=== PATIENT | female | born 1955 | race Caucasian/White ===

== ENCOUNTER 2020-04-17 20:17 | Emergency (ER) | payer OTHER ==
[2020-04-17] MEDS ORDERED: ACETAMINOPHEN 500 MG TAB ONE (20:47)
--- NOTE | 2020-04-17 21:07 | RAD REPORT ---
EXAM DESCRIPTION: RAD - Shoulder Left 2 View - 04/17/2020 8:53 pm CLINICAL HISTORY: Left shoulder pain status post fall FINDINGS: No fracture or dislocation is seen. Marked osteoarthritis left AC joint
--- NOTE | 2020-04-17 21:08 | RAD REPORT ---
EXAM DESCRIPTION: RAD - Knee Left 3 View - 04/17/2020 8:53 pm CLINICAL HISTORY: Left knee pain status post injury FINDINGS: No fracture or dislocation is seen.
--- NOTE | 2020-04-17 21:12 | RAD REPORT ---
EXAM DESCRIPTION: CT - Head C Spine Cap Wo Con - 04/17/2020 8:53 pm TECHNIQUE: Computed axial tomography of the head and cervical spine was obtained. Coronal and sagitt al reconstruction was performed Computed axial tomography of the chest, abdomen and pelvis was obtained. Contrast was not requested. All CT scans are performed using dose optimization technique as appropriate and may include automated exposure control or mA/KV adjustment according to patient size. CLINICAL HISTORY: Head and neck injury with chest and abdominal pain status post fall COMPARISON: None FINDINGS: Scalp swelling. No intracranial bleed is seen. The ventricles are normal in caliber. An extra-axial fluid collection is not noted. . Fluid within the sinuses/mastoids is not seen. A cervical fracture is not seen. No dislocation is noted. The evaluation of mediastinum, jose m, vessels, solid organs and bowel are limited secondary to the lac k of contrast administration. A mediastinal hematoma is not noted. A pleural effusion is not seen. A lung contusion is not present. The liver,spleen, pancreas, adrenals,kidneys and bladder do not demonstrate a traumatic injury. Pessary within the pelvis IMPRESSION: 1. No acute intracranial abnormality is seen. 2. A cervical fracture is not visualized. If the patient continues have symptoms to suggest intracran ial/spinal cord pathology MRI be recommended 3. No traumatic abnormality involving the chest/abdomen/pelvis.
--- NOTE | 2020-04-17 22:15 | ER ---
Nurse's Notes [facility] Name: Lorrie Coburn Age: 64 yrs Sex: Female : 1955 Arrival Date: 04/17/2020 Time: 20:17 Bed 17 Private MD: Diagnosis: Head and neck injuries. Contusions left shoulder and left knee Presentation: 04/17 20:21 Chief complaint: Patient states: I was climbing a ladder in the garage when I fell off jb4 and landed on the concrete floor. The fall was about 10 feet. I did not loose consciousness and I am not on any blood thinners. 20:21 Acuity: CHELSEA 2 jb4 20:21 Care prior to arrival: None. Mechanism of Injury: Fall from ladder approximately 10 jb4 feet. Trauma event details: Injury occurred in the [facility]. 20:21 Method Of Arrival: Wheelchair jb4 20:21 Coronavirus screen: Client denies travel out of the [place] in the last 14 days. At this jb4 time, the client does not indicate any symptoms associated with coronavirus-19. 20:21 Ebola Screen: No symptoms or risks identified at this time. Initial Sepsis Screen: Does jb4 the patient meet any 2 criteria? No. Patient's initial sepsis screen is negative. Does the patient have a suspected source of infection? No. Patient's initial sepsis screen is negative. Risk Assessment: Do you want to hurt yourself or someone else? Patient reports no desire to harm self or others. Onset of symptoms was April 17, 2020 at 19:44. Transition of care: patient was not received from another setting of care. Trauma Activation: Alert Physician: ED Physician; Name: Scott; Notified At: 20:30; Arrived At: 20:30 Physician: General Surgeon; Name: ; Notified At: 20:30; Arrived At: Physician: Radiology; Name: Daija; Notified At: 20:30; Arrived At: 20:30 Physician: Respiratory; Name: ; Notified At: 20:30; Arrived At: Physician: Lab; Name: ; Notified At: 20:30; Arrived At: Historical: - Allergies: 20:21 No Known Allergies; jb4 - Home Meds: 20:21 Synthroid Oral [Active]; jb4 - PMHx: 20:21 GERD; Hypothyroidism; jb4 - PSHx: 20:21 Hysterectomy; Cholecystectomy; Tonsillectomy; jb4 - Immunization history:: Adult Immunizations up to date. - Immunization history: Last tetanus immunization: - up to date. - Social history:: Smoking status: Patient denies any tobacco usage or history of. Patient/guardian denies using alcohol, street drugs. Screenin:21 Abuse screen: Denies threats or abuse. Tuberculosis screening: No symptoms or risk jb4 factors identified. 20:30 Nutritional screening: No deficits noted. Fall Risk Fall in past 12 months (25 points). rr5 Total Jimenez Fall Scale indicates Low Risk Score (25-44 pts). Fall prevention measures have been instituted. Side Rails Up X 2 Frequent Obs/Assesments occuring Family Present and informed to notify staff if they need to leave bedside As available Patient and Family Educated on Fall Prevention Program and strategies. Primary Survey: 20:21 NO uncontrolled hemorrhage observed. A: The patient is alert. Airway: patent. jb4 Breathing/Chest: Respiratory pattern: regular, Respiratory effort: spontaneous, unlabored, Chest inspection: symmetrical rise and fall of the chest. Circulation: Skin color: pink, Skin temperature: warm, dry. Disability Alert. Exposure/Environment: All clothing and personal items were removed. Forensic evidence collection is not deemed to be indicated at this time. Items placed in patient belonging bag. 21:20 Reassessment Airway Airway Patent Breathing/Chest Respiratory pattern Regular rr5 Respiratory effort Spontaneous Unlabored Breath sounds Clear Chest inspection Symmetrical Circulation Pulses Palpable Disability Alert. Secondary Survey: 20:21 HEENT: Head Other Hematoma to the back of the head and left forehead. Face No jb4 injury/deformity Eyes: No injury or deformity noted. Ears: clear bilaterally. Nose: clear to bilateral nares. Throat: No injury or deformity noted. is clear with gag reflex present. Gastrointestinal: No deficits noted. : No deficits noted. Musculoskeletal: Circulation, motion, and sensation intact. Range of motion: Swelling present in left knee. Injury Description: Abrasion sustained to right hand, left hand, right tricep, right elbow, left tricep, left elbow and left knee hematoma to left side of forehead, left knee and back of head. Assessment: 20:20 General: Appears in no apparent distress. uncomfortable, Behavior is calm, cooperative, rr5 appropriate for age. Pain: Complains of pain in right leg and left side of forehead and top of head and back of head and head and left arm and right arm and left hand and right hand and right elbow and right tricep and left elbow and left tricep and left leg and left knee Pain currently is 10 out of 10 on a pain scale. Quality of pain is described as aching, Pain began suddenly, Is intermittent. 20:20 Neuro: Level of Consciousness is awake, alert, obeys commands, Oriented to person, rr5 place, time, situation, Appropriate for age. Cardiovascular: Capillary refill < 3 seconds Patient's skin is warm and dry. Respiratory: Airway is patent Respiratory effort is even, unlabored, Respiratory pattern is regular, symmetrical. GI: No signs and/or symptoms were reported involving the gastrointestinal system. : No signs and/or symptoms were reported regarding the genitourinary system. EENT: No signs and/or symptoms were reported regarding the EENT system. Derm: Skin temperature is warm Wound noted face, scalp, back, right arm, left arm, right leg and left leg Wound is abrasion. Musculoskeletal: Circulation, motion, and sensation intact. Capillary refill < 3 seconds, Reports pain in face, scalp, back, chest, right arm, left arm, right leg and left leg. 21:10 Reassessment: Patient appears in no apparent distress at this time. Patient is alert, rr5 oriented x 3, equal unlabored respirations, skin warm/dry/pink. back from CT scan. 22:35 Reassessment: Patient appears in no apparent distress at this time. Patient is alert, rr5 oriented x 3, equal unlabored respirations, skin warm/dry/pink. discharge instruction given and explained without complaints made. Vital Signs: 20:21 BP 145 / 69; Pulse 95; Resp 20 S; Temp 98.4(O); Pulse Ox 99% on R/A; Weight 81.65 kg jb4 (R); Height 5 ft. 7 in. (170.18 cm) (R); Pain 10/10; 21:30 BP 138 / 85; Pulse 85; Resp 16; Pulse Ox 99% ; rr5 22:30 BP 127 / 85; Pulse 80; Resp 17; Pulse Ox 100% ; rr5 20:21 Body Mass Index 28.19 (81.65 kg, 170.18 cm) jb4 [place] Coma Score: 20:21 Eye Response: spontaneous(4). Verbal Response: oriented(5). Motor Response: obeys jb4 commands(6). Total: 15. 22:30 Eye Response: spontaneous(4). Verbal Response: oriented(5). Motor Response: obeys rr5 commands(6). Total: 15. Trauma Score (Adult): 20:21 Eye Response: spontaneous(1); Verbal Response: oriented(1); Motor Response: obeys jb4 commands(2); Systolic BP: > 89 mm Hg(4); Respiratory Rate: 10 to 29 per min(4); [place] Score: 15; Trauma Score: 12 22:30 Eye Response: spontaneous(1); Verbal Response: oriented(1); Motor Response: obeys rr5 commands(2); Systolic BP: > 89 mm Hg(4); Respiratory Rate: 10 to 29 per min(4); [place] Score: 15; Trauma Score: 12 ED Course: 20:17 Patient arrived in ED. bp1 20:21 Mahad Duron, RN is Primary Nurse. rr5 20:21 Patient has correct armband on for positive identification. Bed in low position. Call jb4 light in reach. Side rails up X 1. 20:21 Arm band placed on right wrist. jb4 20:21 Patient maintains SpO2 saturation greater than 95% on room air. Thermoregulation: warm jb4 blanket given to patient. 20:33 Enoc Chavez MD is Attending Physician. pkl 20:33 Triage completed. jb4 20:53 Shoulder Left (2 View) XRAY In Process Unspecified. EDMS 20:53 Knee Left 3 View XRAY In Process Unspecified. EDMS 20:54 CT Traumagram (Head C Spine CAP wo con) In Process Unspecified. EDMS 22:20 Bobby wrap to left knee Clavicle/Shoulder strap applied on left clavicle/shoulder. rr5 22:20 No provider procedures requiring assistance completed. Patient did not have IV access rr5 during this emergency room visit. Administered Medications: 20:38 Drug: Tylenol 1000 mg Route: PO; rr5 21:40 Follow up: Response: No adverse reaction rr5 22:10 Drug: Motrin 400 mg Route: PO; rr5 22:30 Follow up: Response: No adverse reaction rr5 Intake: 21:00 PO: 200ml (Water); Total: 200ml. rr5 Outcome: 22:14 Discharge ordered by . pkl 22:35 Discharged to home via wheelchair, with family. rr5 22:35 Condition: stable 22:35 Discharge instructions given to patient, family, Instructed on discharge instructions, rr5 follow up and referral plans. medication usage, Demonstrated understanding of instructions, follow-up care, medications, Prescriptions given X 1. 22:35 Patient's length of stay was not longer than 2 hours. rr5 22:36 Patient left the ED. rr5 Signatures: Dispatcher [employer] EDMS Enoc Chavez MD MD pkl Bryson, James RN RN jb4 Mahad Duron RN RN rr5 Isabel Duque
--- NOTE | 2020-04-17 22:15 | EDPHYS ---
Physician Documentation [facility] Name: Lorrie Coburn Age: 64 yrs Sex: Female : 1955 Arrival Date: 04/17/2020 Time: 20:17 Bed 17 Private MD: ED Physician Enoc Chavez HPI: 04/17 20:46 This 64 yrs old Female presents to ER via Wheelchair with complaints of Fall pkl Injury. 20:46 Details of fall: The patient fell from a height, from a ladder, approximately 10 feet. pkl Onset: The symptoms/episode began/occurred just prior to arrival. Associated injuries: The patient sustained injury to the head, contusion, hematoma, left forehead, left shoulder, contusion, painful injury, left knee, abrasion, painful injury, swelling. Denies LOC. Historical: - Allergies: 20:21 No Known Allergies; jb4 - Home Meds: 20:21 Synthroid Oral [Active]; jb4 - PMHx: 20:21 GERD; Hypothyroidism; jb4 - PSHx: 20:21 Hysterectomy; Cholecystectomy; Tonsillectomy; jb4 - Immunization history:: Adult Immunizations up to date. - Immunization history: Last tetanus immunization: - up to date. - Social history:: Smoking status: Patient denies any tobacco usage or history of. Patient/guardian denies using alcohol, street drugs. ROS: 20:52 Eyes: Negative for injury, pain, redness, and discharge, ENT: Negative for injury, pkl pain, and discharge, Neck: Negative for injury, pain, and swelling, Cardiovascular: Negative for chest pain, palpitations, and edema, Respiratory: Negative for shortness of breath, cough, wheezing, and pleuritic chest pain, Abdomen/GI: Negative for abdominal pain, nausea, vomiting, diarrhea, and constipation, Back: Negative for injury and pain, : Negative for injury, bleeding, discharge, and swelling. 20:52 MS/extremity: Positive for decreased range of motion, pain, tenderness, of the left shoulder, Pain, swelling and abrasion left knee. 20:52 Neuro: Negative for altered mental status, loss of consciousness. Exam: 22:04 ENT: Nares patent. No nasal discharge, no septal abnormalities noted. Tympanic pkl membranes are normal and external auditory canals are clear. Oropharynx with no redness, swelling, or masses, exudates, or evidence of obstruction, uvula midline. Mucous membranes moist. 22:04 Head/face: Noted is contusion, hematoma, that is moderate, of the left forehead. 22:04 Eyes: Exam is negative for acute changes. 22:04 Neck: Exam negative for nuchal rigidity. 22:04 Chest/axilla: Exam negative for acute changes. 22:04 Cardiovascular: Rate: normal, actual rate is 95 bpm. 22:04 Respiratory: the patient does not display signs of respiratory distress, Respirations: normal, Breath sounds: are clear throughout. 22:04 Abdomen/GI: Bowel sounds: normal, Palpation: abdomen is soft and non-tender, in all quadrants. 22:04 Back: Exam negative for acute changes. 22:04 : Exam negative for acute changes. 22:04 Musculoskeletal/extremity: Extremities: grossly normal except: noted in the left shoulder: contusion, pain, tenderness, noted in the left knee: 22:04 Neuro: Orientation: is normal, Mentation: is normal, Cranial nerves: grossly normal, Motor: is normal. Vital Signs: 20:21 BP 145 / 69; Pulse 95; Resp 20 S; Temp 98.4(O); Pulse Ox 99% on R/A; Weight 81.65 kg jb4 (R); Height 5 ft. 7 in. (170.18 cm) (R); Pain 10/10; 21:30 BP 138 / 85; Pulse 85; Resp 16; Pulse Ox 99% ; rr5 22:30 BP 127 / 85; Pulse 80; Resp 17; Pulse Ox 100% ; rr5 20:21 Body Mass Index 28.19 (81.65 kg, 170.18 cm) jb4 [place] Coma Score: 20:21 Eye Response: spontaneous(4). Verbal Response: oriented(5). Motor Response: obeys jb4 commands(6). Total: 15. 22:30 Eye Response: spontaneous(4). Verbal Response: oriented(5). Motor Response: obeys rr5 commands(6). Total: 15. Trauma Score (Adult): 20:21 Eye Response: spontaneous(1); Verbal Response: oriented(1); Motor Response: obeys jb4 commands(2); Systolic BP: > 89 mm Hg(4); Respiratory Rate: 10 to 29 per min(4); [place] Score: 15; Trauma Score: 12 22:30 Eye Response: spontaneous(1); Verbal Response: oriented(1); Motor Response: obeys rr5 commands(2); Systolic BP: > 89 mm Hg(4); Respiratory Rate: 10 to 29 per min(4); [place] Score: 15; Trauma Score: 12 MDM: 22:04 Data reviewed: vital signs, nurses notes, radiologic studies, CT scan, plain films. ED pkl course: Discussed imaging studies with patient and family. Advised Tylenol and Motrin prn for pain. Follow up with PCP in 2 to 3 days. Patient understood instructions. 22:14 Patient medically screened. pkl 04/17 20:36 Order name: Shoulder Left (2 View) XRAY; Complete Time: 21:53 pkl 04/17 20:36 Order name: Knee Left 3 View XRAY; Complete Time: 21:53 pkl 04/17 20:36 Order name: CT Traumagram (Head C Spine CAP wo con); Complete Time: 21:53 pkl 04/17 22:04 Order name: Sling; Complete Time: 22:43 pkl 04/17 22:04 Order name: Bobby Wrap; Complete Time: 22:43 pkl Administered Medications: 20:38 Drug: Tylenol 1000 mg Route: PO; rr5 21:40 Follow up: Response: No adverse reaction rr5 22:10 Drug: Motrin 400 mg Route: PO; rr5 22:30 Follow up: Response: No adverse reaction rr5 Disposition: 04/17/20 22:14 Discharged to Home. Impression: Head and neck injuries. Contusions left shoulder and left knee. - Condition is Stable. - Prescriptions for Tylenol- Codeine #3 300-30 mg Oral Tablet - take 1 tablet by ORAL route every 8 hours As needed; 15 tablet. - Medication Reconciliation Form, Thank You Letter, Antibiotic Education, Prescription Opioid Use form. - Follow up: Private Physician; When: 2 - 3 days; Reason: Re-evaluation by your physician. - Problem is new. - Symptoms have improved. Signatures: Dispatcher [employer] EDMS Enoc Chavez MD MD pkNaeem Merritt RN RN jb4 Mahad Duron RN RN rr5 Corrections: (The following items were deleted from the chart) 20:55 20:46 Eyes: Negative for injury, pain, redness, and discharge, ENT: Negative for pkl injury, pain, and discharge, pkl 22:36 22:14 04/17/2020 22:14 Discharged to Home. Impression: Head and neck injuries. rr5 Contusions left shoulder and left knee. Condition is Stable. Forms are Medication Reconciliation Form, Thank You Letter, Antibiotic Education, Prescription Opioid Use. Follow up: Private Physician; When: 2 - 3 days; Reason: Re-evaluation by your physician. Problem is new. Symptoms have improved. pkl
[2020-04-17] MEDS ORDERED: IBUPROFEN 400 MG TAB ONE (22:22)
[2020-04-17 22:42] VITALS: BP 145/69; TEMP 98.4; O2SAT 99
== END 2020-04-17 22:36 | disposition home or self-care (01) ==
LOC: ER 20:17
DX: S00.83XA Contusion of other part of head, initial encounter (principal); S19.9XXA Unspecified injury of neck, initial encounter; S40.012A Contusion of left shoulder, initial encounter; S80.02XA Contusion of left knee, initial encounter; W11.XXXA Fall on and from ladder, initial encounter; Y93.9 Activity, unspecified; Y92.9 Unspecified place or not applicable; E03.9 Hypothyroidism, unspecified
CPT/HCPCS: 70450; 71250; 72125; 99284; G0390